=== PATIENT | female | born 1980 | race African-American/Black ===

== ENCOUNTER 2022-03-21 15:29 | Outpatient (CLI) | payer BC ==
[2022-03-21 16:19] LABS: Hemoglobin 12.2 g/dL (12.0-15.5); Mean Corpuscular HGB CONC 32.4 g/dL (32.0-36.0); Mean Corpuscular Hemoglobin 30.3 pg (27.0-33.0); Mean Corpuscular Volume 93.5 fl (81.6-98.3); Mean Platelet Volume 10.2 fl (7.4-10.4); Platelet Count 313 10x3/uL (150-450); RBC Distribution Width 12.9 % (11.5-14.5); Red Blood Cell (RBC) Count 4.03 10x6/uL (3.90-5.03); White Blood Cell (WBC) Count 6.7 10x3/uL (3.5-10.5)
[2022-03-21 16:41] LABS: BHCG - Serum Negative (NEGATIVE); Pregs Control Background? CLEAR/WHITE (CLR/WHITE); Pregs Control Bar Appear? YES (CONTROL BAR)
[2022-03-22 12:35] LABS: SARS-CoV-2 PCR by NAA Not Detected (NotDetected)
== END 2022-03-21 15:30 | disposition home or self-care (01) ==
LOC: CSHLAB 15:29
PROVIDERS: ATTEND Student in an Organized Health Care Education/Training Program
DX: Z01.812 Encounter for preprocedural laboratory examination (principal); Z20.822 Contact with and (suspected) exposure to COVID-19
CPT/HCPCS: 84703; 85027; 86850; 86900; 86901; U0003; U0005

== ENCOUNTER 2022-03-24 10:14 | Day surgery (SDC) | payer BC, OTHER ==
[2022-03-22 10:37] VITALS: BMI 28.2
[2022-03-24] MEDS ORDERED: Lidocaine 1% MPF 2 ML VIAL ONE ×2 (11:38→11:53)
[2022-03-24] MEDS ORDERED: CeleCOXIB 100 MG CAP ONE (11:38)
[2022-03-24] MEDS ORDERED: EPINEPHrine 1 MG/ML AMP ONE (13:09)
[2022-03-24] MEDS ORDERED: Bupivacaine PF 0.5% 30 ML VIAL ONE (13:09)
[2022-03-24] MEDS ORDERED: Lidocaine 1% PF 5 ML VIAL ONE (13:17)
[2022-03-24] MEDS ORDERED: Ondansetron PF 4 MG/2 ML Vial ONE (13:17)
[2022-03-24] MEDS ORDERED: Lidocaine 4% PF 5 ML AMP ONE (13:17)
[2022-03-24] MEDS ORDERED: PROPOFOL 20 ML ONE (13:17)
[2022-03-24] MEDS ORDERED: Rocuronium Bromide 10 MG/ML (10ML VIAL) ONE (13:17)
[2022-03-24] MEDS ORDERED: Dexamethasone 4 mg/ml Vial ONE (13:17)
[2022-03-24] MEDS ORDERED: Midazolam HCl 2 mg/2 ml Vial ONE (13:17)
[2022-03-24] MEDS ORDERED: Fentanyl 100 MCG/2 ML VIAL ONE (13:17)
[2022-03-24] MEDS ORDERED: ceFAZolin 2 GM/Dextrose 50 ML IVPB ONE (13:20)
[2022-03-24] MEDS ORDERED: Ketorolac Tromethamine 30 MG/ML VIAL ONE (13:24)
[2022-03-24] MEDS ORDERED: SUGAMMADEX SODIUM 200 MG/2 ML VIAL ONE (13:26)
[2022-03-24] MEDS ORDERED: PHENYLEPHRINE-NS 100 MCG/ML 10 ML SYRINGE ONE (14:22)
[2022-03-24] MEDS ORDERED: Glycopyrrolate 0.2 MG/ML 5 ML SYRINGE ONE (14:27)
[2022-03-24] MEDS ORDERED: Meperidine HCl/PF 25 MG/ML VIAL ONE (14:28)
[2022-03-24] MEDS ORDERED: ePHEDrine 50 MG/ML VIAL ONE (14:45)
== END 2022-03-24 16:15 | disposition home or self-care (01) ==
LOC: CSHSDC 10:14
PROVIDERS: ATTEND Student in an Organized Health Care Education/Training Program
PROC: 0UT74ZZ Resection of Bilateral Fallopian Tubes, Percutaneous Endoscopic Approach (ICD-10-PCS; principal; 2022-03-24)
DX: Z30.2 Encounter for sterilization (principal); N83.8 Other noninflammatory disorders of ovary, fallopian tube and broad ligament; N73.6 Female pelvic peritoneal adhesions (postinfective); Z80.3 Family history of malignant neoplasm of breast
CPT/HCPCS: 88307; J0171; J0690; J1100; J1885; J2175; J2250; J2405; J2704; J3010; J3490; S0020